=== PATIENT | female | born 2000 | race Two or more races ===

== ENCOUNTER 2024-09-14 00:16 | Emergency (ER) | payer SELFPAY ==
[2024-09-14 00:29] VITALS: BP 115/61; PULSE 105; RESP 16; TEMP 37.4; O2SAT 99; BMI 18.0
[2024-09-14 00:57] LABS: Basophils Percent Auto 0.2 % (0-2); Eosinophils Absolute Auto 0.1 X10*3/uL (0.0-0.4); Eosinophils Percent Auto 1.2 % (0-4); Hematocrit 36.8 % (37.0-47.0); Hemoglobin 12.2 g/dl (12.0-16.0); Imm Gran Abs Auto 0.01 X10*3/uL (0.00-0.03); Imm Gran Pct Auto 0.2 % (0.0-0.4); Lymphocytes Absolute Auto 1.7 X10*3/uL (1.2-4.9); Lymphocytes Percent Auto 36.2 % (20-40); MANUAL DIFF FLAG NO; Mean Corpuscular HGB Conc 33.2 g/dl (31.0-35.0); Mean Corpuscular Hemoglobin 26.5 pg (27.0-33.0); Monocytes Absolute Auto 0.8 X10*3/uL (0.1-1.2); Monocytes Percent Auto 16.8 % (2-11); Neutrophils Absolute Auto 2.2 x10*3/uL (2.0-8.3); Neutrophils Percent Auto 45.4 % (45-73); Platelet Count 207 X10*3/uL (160-400); Red Cell Distribution Width 12.9 % (11.0-16.0); White Blood Count 4.8 X10*3/uL (4.8-10.8)
[2024-09-14 01:18] LABS: Alanine Aminotransferase 10 U/L (0-31); Albumin Level 4.1 g/dL (3.5-5.0); Anion Gap 13 (12-20); Aspartate Amino Transferase 18 U/L (5-31); Bilirubin Total 0.2 mg/dL (0.0-1.0); Blood Urea Nitrogen 7 mg/dL (9-16); Calcium 9.2 mg/dL (8.4-10.2); Carbon Dioxide 23 mmol/L (22-29); Chloride 108 mmol/L (96-108); Creatinine Clr Calc Pharmacy 126.4; Estimated Glomerular Filt Rate > 60; Glucose Random 100 mg/dL (60-115); Potassium 3.6 mmol/L (3.3-5.1); Sodium 140 mmol/L (135-145); Total Protein 7.5 g/dL (6.5-8.0)
--- NOTE | 2024-09-14 01:21 | PC.NURSE ---
pt states she is unable to urinate for UA despite feeling full. bladder scan 152mls
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
[2024-09-14 01:53] LABS: Alkaline Phosphatase 50 U/L (39-117)
[2024-09-14 01:54] LABS: HCG Quantitative < 2 mIU/mL
[2024-09-14] MEDS: Lidocaine/Racepinep/Tetracaine 3 ML GEL.PF.APP TOPICAL (02:58)
[2024-09-14 03:19] VITALS: BP 118/62; PULSE 89; RESP 16; O2SAT 100
[2024-09-14] MEDS: valACYclovir HCL 1,000 MG TABLET 1000 MG PO (03:25)
--- NOTE | 2024-09-14 03:28 | PC.NURSE ---
provider applied lidocaine to vaginal ulcer. pt now able to urinate, pain is relieved. UA sent
[2024-09-14 03:31] LABS: Appearance Urine Clear; Color Urine Yellow; Glucose Urine UA Negative (Negative); Leukocyte Esterase Urine Small (1+) (Negative); Nitrite Urine Negative (Negative); PH 7.5 (5.0-9.0); Specific Gravity - Urine 1.015 (1.005-1.025); UMIC TRIGGER UACC YES; Urine Blood Large (3+) (Negative); Urine Ketones Negative (Negative); Urine Protein Negative (Neg-Trace)
[2024-09-14 03:42] LABS: Bacteria Urine Trace (None Seen); Hyaline Casts Urine 0-2 /LPF (0-2); Other Crystals Urine Present; RBC Urine >20 /HPF (0-2); Squamous Epithelial Cell Urine 0-2 /HPF (0-2); UACC Culture Trigger YES
[2024-09-14 04:17] VITALS: BP 109/61; PULSE 92; RESP 16; TEMP 37.2; O2SAT 99
[2024-09-14 04:18] VITALS: BP 109/61; PULSE 92; RESP 16; TEMP 37.2; O2SAT 99
== END 2024-09-14 04:18 | disposition home or self-care (01) ==
LOC: HO.ED 04:17
PROVIDERS: Physician Assistant Medical; Emergency Provider Internal Medicine
DX: N76.6 Ulceration of vulva (principal); R10.2 Pelvic and perineal pain
CPT/HCPCS: 36415; 80053; 81001; 84702; 85025; 87086; 87255; 99283